=== PATIENT | female | born 2000 | race Asian ===

== ENCOUNTER 2024-12-26 11:20 | Outpatient (CLI) | payer BC, SELFPAY ==
[2024-12-26 13:30] LABS: Trichomonas No Trichomonas Seen (None Seen)
[2024-12-26 14:55] LABS: Chlamydia DNA Amplified* NOT DETECTED (No Detected); GC DNA Amplified* NOT DETECTED (No Detected)
[2025-01-03 00:24] LABS: HPV Source Vaginal
[2025-01-08 09:48] LABS: Pap Test Digital Imaging Done; Pap Test Reviewed by Pathologi Done
== END 2024-12-26 11:21 | disposition home or self-care (01) ==
PROVIDERS: PCP Nurse Practitioner Family; Visit Provider Nurse Practitioner Family
DX: Z11.3 Encounter for screening for infections with a predominantly sexual mode of transmission (principal); N89.8 Other specified noninflammatory disorders of vagina; Z00.00 Encounter for general adult medical examination without abnormal findings
CPT/HCPCS: 87210; 87491; 87591; 87624; 87625; 88141; 88142; 88175

== ENCOUNTER 2025-01-25 13:27 | Outpatient (CLI) | payer BC, SELFPAY ==
[2025-01-25 15:35] LABS: Trichomonas No Trichomonas Seen (None Seen)
== END 2025-01-25 13:28 | disposition home or self-care (01) ==
LOC: KYNREF 13:27
PROVIDERS: PCP Nurse Practitioner Family; Visit Provider Nurse Practitioner Family
DX: N89.8 Other specified noninflammatory disorders of vagina (principal)
CPT/HCPCS: 87210